=== PATIENT | male | born 1965 | race Caucasian/White ===

== ENCOUNTER 2019-10-22 16:54 | Inpatient (IN) ==
--- NOTE | 2019-10-22 17:23 | ERNOTE ---
Abdominal HPI - Narrative Date of Service: 10/22/19 - General Chief Complaint: Abdominal Pain Time Seen by Provider: 10/22/19 17:12 Source: patient Exam Limitations: no limitations - Immun/Allergies/Home Medications Immunizatons: IMMUNIZATION HX Immunizations Up to Date Yes History of Influenza Vaccine No Hx Pneumococcal Vaccination No Allergies/Adverse Reactions: Allergies No Known Allergies Allergy (Verified 10/22/19 16:21) Home Medications: HOME MEDICATIONS aspirin 81 mg tablet,delayed release 81 mg PO DAILY #30 tab 05/19/19 [Last Taken Unknown] atorvastatin 10 mg tablet 10 mg PO DAILY #30 tab 05/19/19 [Last Taken Unknown] lisinopril 2.5 mg tablet 2.5 mg PO DAILY #30 tab 05/19/19 [Last Taken Unknown] celecoxib 200 mg capsule 200 mg PO BID PRN #60 cap 09/15/19 [Last Taken Unknown] clonazepam 1 mg tablet 1 mg PO HS PRN #45 tab 09/15/19 [Last Taken Unknown] metformin 500 mg tablet 500 mg PO BID #60 tab 09/15/19 [Last Taken Unknown] tramadol 50 mg tablet 50 mg PO DAILY PRN #30 tab 09/15/19 [Last Taken Unknown] zolpidem 12.5 mg tablet,extended release,multiphase 12.5 mg PO HS #30 tab 09/15/19 [Last Taken Unknown] tramadol 50 mg tablet 50 mg PO TID PRN #90 tab 09/24/19 [Last Taken Unknown] venlafaxine 150 mg capsule,extended release 24 hr 150 mg PO DAILY #30 cap 09/24/19 [Last Taken Unknown] venlafaxine 37.5 mg capsule,extended release 24 hr 37.5 mg PO DAILY #21 cap 09/24/19 [Last Taken Unknown] - Pain Score Pain Score #1 Pain Score: 8 Abdominal Pain Onset Location: epigastric Pain Radiation: no radiation - History of Present Illness Narrative: The patient is a 54 year old male who presents for epigastric pain which has been present since yesterday evening. There are associated symptoms of belching and abdominal fullness. The patient reports epigastric pain, 8/10. There are no alleviating factors. There are no aggravating factors. Previous treatments have included: Prilosec without improvement. The past medical history includes: depression, DM and kidney stone. The social history is negative. The patient has had no ill contacts. Patient states he laid down for bed last evening and developed epigastric fullness and pain which has been persistent since onset. Patient reports bowel movement of hard stool just [facility] [employer]. Review of Systems - Review of Systems Constitutional: Present: no symptoms reported. Absent: fever, chills, fatigue EYE: Present: no symptoms reported ENT: Present: no symptoms reported. Absent: ear pain, nasal drainage, sore throat Respiratory: Present: no symptoms reported. Absent: shortness of breath, cough Cardiology: Present: no symptoms reported. Absent: chest pain Gastrointestinal/Abdominal: Present: constipation, abdominal pain, eating less, drinking less. Absent: nausea, vomiting, diarrhea Genitourinary: Present: no symptoms reported. Absent: dysuria, decreased urinary output Musculoskeletal: Present: no symptoms reported. Absent: back pain Skin: Present: no symptoms reported. Absent: rash Neurological: Present: no symptoms reported. Absent: dizziness/light-headedness All Other Systems: All systems neg except as marked Medical History (Last Reviewed 10/22/19 @ 17:21 by MELBA Dhaliwal) Impacted cerumen, bilateral (Acute) Myalgia (Chronic) Encounter for vision screening (Acute) R: L: B: Insomnia disorder (Acute) Fatigue (Chronic) Daytime sleepiness (Chronic) Snoring (Chronic) Associated with daytime fatigue and sleepiness, concerning for CHRISTELLE Screening for depression (Acute) PHQ 9: Watchful waiting. Will address sleep before starting SSRI Encounter to establish care with new doctor (Acute) Pneumonia of left upper lobe due to Mycoplasma pneumoniae (Resolved) Onset Date: 10/16/17 Morbid obesity (Chronic) Onset Date: Unknown Kidney stone (Resolved) Onset Date: Unknown Gout (Chronic) Onset Date: ~1996 Diabetes mellitus, type II (Chronic) Onset Date: 12/18/17 Depression (Chronic) Onset Date: ~1996 Dermatitis (Acute) Onset Date: Unknown Varicosities of leg (Acute) Onset Date: Unknown Superficial phlebitis of right leg (Acute) Onset Date: Unknown Lumbar back sprain (Acute) Onset Date: Unknown Laceration of head (Acute) Onset Date: Unknown Surgical History: Surgical History (Last Reviewed 10/22/19 @ 17:21 by MELBA Dhaliwal) Status post lumbar laminectomy (Resolved) Onset Date: 05/16/10 Dr [id number] Status post epidural steroid injection Onset Date: 04/27/10 01/14/03, 04/27/10-L4-5 Family History: Family History (Last Reviewed 10/22/19 @ 17:21 by MELBA Dhaliwal) Father IDDM (insulin dependent diabetes mellitus) Obesity COPD (chronic obstructive pulmonary disease) Hypertension Brother Alive and well Sister Alive and well 4 sisters Mother , age 72-kidney failure Kidney failure Social History: (Last Reviewed 10/22/19 @ 17:21 by MELBA Dhaliwal) Social History: adopted: No foster care: No [place] [facility] [place]: No Marital status: household members: spouse, children number of children: 3 caregiver/support person: Yes current occupational status: employed current occupation: conservation worker Highest education level completed: some college, no degree Service: No Tobacco: Smoking Status: Never smoker Alcohol: alcohol intake: current Alcohol type: beer alcohol intake frequency: holiday/special occasion Substance Use: substance use type: does not use Dietary Habits: caffeine: Yes Type: tea Exercise: frequency: does not exercise Physical Exam - Physical Exam General Appearance: Present: wd/wn, alert, moderate distress Head Exam: Present: normal inspection Eye Exam: Normal inspection: bilateral Neck: Present: normal inspection Respiratory: Present: no respiratory distress, normal breath sounds, no accessory muscle use, chest nontender, lungs clear Cardiovascular/Chest: Present: regular rate, rhythm, no murmur Gastrointestinal/Abdominal: Present: nondistended, soft, no organomegaly, tenderness - epigastric, abnormal bowel sounds - hypoactive Neurological Exam: Present: alert, oriented, normal mood/affect, no motor/sensory deficits Skin Exam: Present: normal color, warm/dry Progress - Date and Time Seen: Date and Time: 10/22/19 19:34 Due to abnormal xray with symptoms will proceed with CT abd/pelvis for additional evaluation. 10/22/19 20:58 Case discussed with , admit to medicine with surgery consult. Discussed case with , admit due to SBO. 10/22/19 21:41 Difficultly seeing end of NG tube placement, in with patient and NG advanced. Will repeat CXR for placement. - Results and Orders Patient's Lab Results:: I have reviewed the patient's lab results. - Vital Signs Patient's Vital Signs:: I have reviewed the patient's vital signs. Vital Signs: Vital Signs 10/22/19 16:54 Temperature 36.0 C Pulse Rate 98 Respiratory Rate 18 Blood Pressure 143/79 H O2 Sat by Pulse Oximetry 96 - EKG EKG #1 EKG: NSR - rate 99, nonspecific ST T wave changes EKG read: Reviewed by me - X-Ray X-Ray #1 X-Ray: abdomen Interpretation: Reviewed by me X-ray Comments: Abnormal air fluid levels, stair step appearance. Dilated bowel loops. X-Ray #2 X-Ray: chest Interpretation: Reviewed by me X-ray Comments: IMPRESSION: 1. Enteric tube with the tip not well visualized, however appears looped within the distal esophagus. Recommend repositioning. 2. No consolidation. Electronically signed by Poornima Montoya D.O.. - CT/Ultrasound CT/Ultrasound Narrative: IMPRESSION: 1. Findings consistent with a small bowel obstruction. No free intraperitoneal air. 2. Prominent central mesenteric lymph nodes with adjacent inflammatory changes (jude mesentery). This finding is nonspecific. 3. 1.9 cm right adrenal adenoma. 4. 4 mm indeterminate pulmonary nodule in the right middle lobe. Recommend further evaluation with a chest CT on a nonemergent basis to further evaluate. Electronically signed by Poornima Montoya D.O.. - Progress/Reassessment Chief Complaint: Abdominal Pain Departure Clinical Impression: Small bowel obstruction Diabetes mellitus Qualifiers: Diabetes mellitus type: type 2 Diabetes mellitus jail insulin use: without jail use Diabetes mellitus complication status: with other specified complication Qualified Code(s): E11.69 - Type 2 diabetes mellitus with other specified complication - Departure Disposition: Still a patient Condition: Stable
[2019-10-22 17:36] LABS: Hematocrit 51.9 % (42.0-52.0); Hemoglobin 17.9 gm/dL (13.5-18.0); Mean Cell Volume 86.5 fl (78-100); Mean Corpuscular Hemoglobin 29.8 pg (27-31); Mean Corpuscular Hgb Conc 34.5 g/dl (32-36); Mean Platelet Volume 8.8 fl (8-11.3); Platelet Count 303 K/mm3 (150-450); Red Cell Distribution Width 13.1 % (11.5-14.0); White Blood Count 12.8 K/mm3 (4.0-10.5)
[2019-10-22 17:41] LABS: Total Cells Counted 100
[2019-10-22 17:53] LABS: Atypical (Reactive) Lymph 9 % (0-2); Eosinophil 3 % (0-3); Lymphocyte 15 % (20-51); Monocyte 4 % (0-9); Neutrophil 69 % (42-75); Neutrophil # 8.8 K/mm3 (1.3-6.0); Platelet Estimate Normal (NORMAL); RBC Morphology Normal (NORMAL)
[2019-10-22 17:56] LABS: ALT 56 U/L (19-67); AST 29 U/L (0-48); Albumin * 3.9 gm/dl (3.4-5.0); Alkaline Phosphatase * 58 U/L (50-170); Amylase * 27 U/L (25-115); Anion Gap 14.1 mmol/L (6.8-13.8); BUN/Creatinine Ratio 26.3 (9.0-21.6); Bilirubin, Total 0.5 mg/dL (0.0-1.1); Blood Urea Nitrogen 20 mg/dL (6-23); CRP 1.4 mg/dL (0.0-0.9); Ca. Corrected For Albumin 9.2 mg/dL (8.4-10.2); Calcium * 9.4 mg/dL (7.9-10.9); Chloride 100 mmol/L (97-106); Glucose * 150 mg/dL (70-110); Lipase 70 U/L (73-393); Potassium 4.1 mmol/L (3.4-4.6); Sodium 139 mmol/L (132-142); Total Protein 7.9 gm/dL (6.2-8.2)
[2019-10-22 17:57] LABS: Troponin I Less than 0.017 ng/mL (0.00-0.10)
[2019-10-22 18:02] LABS: Urine Bilirubin 1 mg/dl (NEGATIVE); Urine Ketone 5 mg/dL (NEGATIVE); Urine Nitrite Negative (NEGATIVE); Urine Protein 15 mg/dL (NEGATIVE); Urine Specific Gravity >=1.030 SP.GR. (1.005-1.030); Urine Urobilinogen Normal (NORMAL)
[2019-10-22] MEDS ORDERED: DIATRIZOATE MEGLUMINE, SODIUM 30 ML BTL PO ONE (18:07)
[2019-10-22 18:14] LABS: Urine Appearance Slightly Cloudy (CLEAR); Urine Bacteria TRACE; Urine Blood 5 /ul (NEGATIVE); Urine Color Yellow; Urine RBC 0-5 /hpf (0-5)
[2019-10-22] MEDS ORDERED: ONDANSETRON HCL/PF 2 MG/ML VIAL IV ONE (19:46)
[2019-10-22] MEDS ORDERED: MORPHINE SULFATE 2 MG/ML DISP.SYRIN IV ONE (19:46)
[2019-10-22] MEDS ORDERED: NORMAL SALINE 1,000 ML IV ONE (21:38)
[2019-10-22] MEDS ORDERED: ONDANSETRON HCL/PF 2 MG/ML VIAL IV PRN (21:39)
[2019-10-22] MEDS ORDERED: MORPHINE SULFATE 2 MG/ML DISP.SYRIN IV PRN (21:39)
[2019-10-22] MEDS ORDERED: HYDROmorphone HCL 1 MG/ML DISP.SYRIN IV PRN (22:58)
[2019-10-23] MEDS ORDERED: FLU VACC QS2019-20(6MOS UP)/PF 60 MCG/0.5 ML SYRINGE IM ONE ×2 (00:27→09:00)
[2019-10-23] MEDS: PHENOL 180 SPRAY BTL MM PRN ×2 (00:48→03:39)
--- NOTE | 2019-10-23 07:55 | HP ---
Chief Complaint - Chief Complaint Date of Service: 10/23/19 Time of Service: 07:55 Chief Complaint: Abdominal pain History of Present Illness: 54 y/o Male with PMHX of HTN, NIDDM Type II, MDD, KIRBY, Insomnia, and Myalgias presents to the ER c/o epigsatric pain for 1 day progressively getting worse. is at bedside and states Symptoms began on Saturday and they dismissed it as viral infection, progressively over the week epigastric pain progressively became worse. Patient reports he though it was worsening of reflux sxs due to abdominal fullness and belching, but no relief from PPIs. Associated with nausea, but no emesis. On admission pain was described as 8/10, localized, no aggravating or alleviating factors known to the patient. Previously pain was intermittent, pain was constant by arrival to the ER. In the ER VSS, KUB completed and demonstrated multiple dilated loops of small bowel measuring up to 4.2 cm which is suspicious for small bowel obstruction versus ileus. Followed by a CT of the abdomen showing small bowel obstruction, prominent central mesenteric lymph nodes with adjacent inflammatory changes (jude mesentery), 1.9 cm right adrenal adenoma and 4. 4 mm indeterminate pulmonary nodule in the right middle lobe, with recommendations of further evaluation with a chest CT on a nonemergent basis to further evaluate. Labs were largely unremarkable with mild leukocytosis with left shift, elevated CRP & ESR and Hyperglycemia. Patient made NPO and NG tube placed with confirmation of placement with a f/u CXR. Received dilaudid for pain management and Bolus of NS. General Surgery Consulted. On arrival to the floor patient is stable. Not in pain. NG tube in place, no BM yet. Discussed management with patient and at bedside. Voiced understanding and agreeable with plan. Medical History (Last Reviewed 10/23/19 @ 00:11 by Benita Durant RN) Impacted cerumen, bilateral (Acute) Myalgia (Chronic) Encounter for vision screening (Acute) R: 20/25 L:20 B:20/25 Insomnia disorder (Chronic) Fatigue (Chronic) Daytime sleepiness (Chronic) Snoring (Chronic) Associated with daytime fatigue and sleepiness, concerning for CHRISTELLE Screening for depression (Acute) PHQ 9: Watchful waiting. Will address sleep before starting SSRI Encounter to establish care with new doctor (Acute) Pneumonia of left upper lobe due to Mycoplasma pneumoniae (Resolved) Onset Date: 10/16/17 Morbid obesity (Chronic) Onset Date: Unknown Kidney stone (Resolved) Onset Date: Unknown Gout (Chronic) Onset Date: ~1996 Diabetes mellitus, type II (Chronic) Onset Date: 12/18/17 Depression (Chronic) Onset Date: ~1996 Dermatitis (Acute) Onset Date: Unknown Varicosities of leg (Acute) Onset Date: Unknown Superficial phlebitis of right leg (Acute) Onset Date: Unknown Lumbar back sprain (Acute) Onset Date: Unknown Laceration of head (Acute) Onset Date: Unknown Surgical History: Surgical History (Last Reviewed 10/23/19 @ 00:11 by Benita Durant RN) Status post lumbar laminectomy (Resolved) Onset Date: 05/16/10 Dr [id number] Status post epidural steroid injection Onset Date: 04/27/10 01/14/03, 04/27/10-L4-5 Family History: Family History (Last Reviewed 10/23/19 @ 00:11 by Benita Durant RN) Father Hypertension COPD (chronic obstructive pulmonary disease) Obesity IDDM (insulin dependent diabetes mellitus) Brother Alive and well Sister Alive and well 4 sisters Mother , age 72-kidney failure Kidney failure Social History: (Last Reviewed 10/23/19 @ 00:11 by Benita Durant RN) Social History: adopted: No foster care: No fpc: No Marital status: household members: spouse, children number of children: 3 caregiver/support person: Yes current occupational status: employed current occupation: utility maintenance worker Highest education level completed: some college, no degree Service: No Tobacco: Smoking Status: Never smoker Alcohol: alcohol intake: current Alcohol type: beer alcohol intake frequency: holiday/special occasion Substance Use: substance use type: does not use Dietary Habits: caffeine: Yes Type: tea Exercise: frequency: does not exercise Review Of Systems (GEN) - Review of Systems Generalized/Overall Review: Absent: Chills, Fatigue EENTM: Present: Nose Pain, Throat Pain Respiratory: Absent: Cough, Shortness of Breath Cardiac: Absent: Chest Pain Abdominal: Present: Nausea, Abdominal Pain, Constipation. Absent: Vomiting Genitourinary: Absent: Itching, Urgency, Frequency Musculoskeletal: Absent: Joint Pain, Back Pain Neurological: Absent: Weakness Skin: Absent: Dryness Immunizations: IMMUNIZATION HX Immunizations Up to Date Yes History of Influenza Vaccine No Hx Pneumococcal Vaccination No Allergies/Adverse Reactions: Allergies Allergy/AdvReac Type Severity Reaction Status Date / Time No Known Allergies Allergy Verified 10/23/19 00:11 Home Medications: HOME MEDICATIONS lisinopril 2.5 mg tablet 2.5 mg PO DAILY #30 tab 05/19/19 [Last Taken Unknown] celecoxib 200 mg capsule 200 mg PO BID PRN #60 cap 09/15/19 [Last Taken Unknown] clonazepam 1 mg tablet 1 mg PO HS PRN #45 tab 09/15/19 [Last Taken Unknown] metformin 500 mg tablet 500 mg PO BID #60 tab 09/15/19 [Last Taken Unknown] zolpidem 12.5 mg tablet,extended release,multiphase 12.5 mg PO HS #30 tab 09/15/19 [Last Taken Unknown] venlafaxine 150 mg capsule,extended release 24 hr 150 mg PO DAILY #30 cap 09/24/19 [Last Taken Unknown] venlafaxine 37.5 mg capsule,extended release 24 hr 37.5 mg PO DAILY #21 cap 09/24/19 [Last Taken Unknown] traMADol HCL [Tramadol HCl] 50 mg PO PRN PRN 10/23/19 [Last Taken Unknown] Exam - Exam Vital Signs: Vital Signs - Last Taken Temp 36.4 C 10/23/19 06:34 Pulse 86 10/23/19 06:34 Resp 12 10/23/19 06:34 BP 130/84 10/23/19 06:34 Pulse Ox 96 10/23/19 06:34 Constitutional: Present: Alert, Oriented x3, Cooperative, Well developed, No distress ENT Exam: Present: hearing grossly normal Eye Exam: bilateral eye: normal inspection, EOMI Neck: Present: non-tender, full range of motion Respiratory: Present: lungs clear, normal breath sounds, no respiratory distress, no accessory muscle use, No rales, No wheezing Cardiovascular/Chest: Present: normal peripheral pulses, regular rate, rhythm, no chest tenderness, no edema, no gallop, no JVD, no murmur Abdomen: Present: Normal bowel sounds, nondistended, firm, distended Extremity: Present: normal range of motion, normal inspection, no pedal edema, normal capillary refill Skin Exam: Present: normal color, warm/dry Neurologic: Present: no motor/sensory deficits, alert, oriented x 3 Appearance: Present: appropriate appearance Eye contact: Present: cooperative, good eye contact Thoughts: Present: normal thought pattern Diagnostic Studies: Abnormal Lab Results 10/22/19 10/22/19 10/22/19 Range/Units 17:30 17:30 17:54 WBC 12.8 H (4.0-10.5) K/mm3 Lymphocytes % (Manual) 15 L (20-51) % Neutrophils # (Manual) 8.8 H (1.3-6.0) K/mm3 Atypic/Reactive Lymphs 9 H (0-2) % Anion Gap 14.1 H (6.8-13.8) mmol/L BUN/Creatinine Ratio 26.3 H (9.0-21.6) Random Glucose 150 H (70-110) mg/dL C-Reactive Prot, Quant 1.4 H (0.0-0.9) mg/dL Lipase 70 L (73-393) U/L Urine Protein 15 H (NEGATIVE) mg/dL Urine Blood 5 H (NEGATIVE) /ul Urine Bilirubin 1 H (NEGATIVE) mg/dl Urine Ictotest Positive H (NEGATIVE) Ur Leukocyte Esterase 75 H (NEGATIVE) /ul Urine WBC 10-25 H (0-5) /hpf Microbiology 10/22/19 18:00 Urine Culture - Preliminary Urine,Voided No Growth Laboratory Results WBC 12.8 K/mm3 (4.0-10.5) H 10/22/19 17:30 RBC 6.00 M/mm3 (4.7-6.0) 10/22/19 17:30 Hgb 17.9 gm/dL (13.5-18.0) 10/22/19 17:30 Hct 51.9 % (42.0-52.0) 10/22/19 17:30 MCV 86.5 fl (78-100) 10/22/19 17:30 MCH 29.8 pg (27-31) 10/22/19 17:30 MCHC 34.5 g/dl (32-36) 10/22/19 17:30 RDW 13.1 % (11.5-14.0) 10/22/19 17:30 Plt Count 303 K/mm3 (150-450) 10/22/19 17:30 MPV 8.8 fl (8-11.3) 10/22/19 17:30 Neutrophils % (Manual) 69 % (42-75) 10/22/19 17:30 Lymphocytes % (Manual) 15 % (20-51) L 10/22/19 17:30 Monocytes % (Manual) 4 % (0-9) 10/22/19 17:30 Eosinophils % (Manual) 3 % (0-3) 10/22/19 17:30 Neutrophils # (Manual) 8.8 K/mm3 (1.3-6.0) H 10/22/19 17:30 Lymphocytes # (Manual) 1.9 k/mm3 (1.5-3.5) 10/22/19 17:30 Monocytes # (Manual) 0.5 k/mm3 (0.0-1.0) 10/22/19 17:30 Eosinophils # (Manual) 0.4 k/mm3 (0.0-0.7) 10/22/19 17:30 Atypic/Reactive Lymphs 9 % (0-2) H 10/22/19 17:30 Platelet Estimate Normal (NORMAL) 10/22/19 17:30 RBC Morphology Normal (NORMAL) 10/22/19 17:30 Sodium 139 mmol/L (132-142) 10/22/19 17:30 Plasma Sodium 140 mmol/L (130-142) 10/22/19 17:30 Potassium 4.1 mmol/L (3.4-4.6) 10/22/19 17:30 Chloride 100 mmol/L (97-106) 10/22/19 17:30 Carbon Dioxide 29.0 mmol/L (24-32.6) 10/22/19 17:30 Anion Gap 14.1 mmol/L (6.8-13.8) H 10/22/19 17:30 BUN 20 mg/dL (6-23) 10/22/19 17:30 Creatinine 0.76 mg/dL (0.4-1.4) 10/22/19 17:30 Est GFR (Non-Af Amer) 114 mL/min (60-130) 10/22/19 17:30 BUN/Creatinine Ratio 26.3 (9.0-21.6) H 10/22/19 17:30 Random Glucose 150 mg/dL (70-110) H 10/22/19 17:30 Calcium 9.4 mg/dL (7.9-10.9) 10/22/19 17:30 Calcium Adj for Albumin 9.2 mg/dL (8.4-10.2) 10/22/19 17:30 Total Bilirubin 0.5 mg/dL (0.0-1.1) 10/22/19 17:30 AST 29 U/L (0-48) 10/22/19 17:30 ALT 56 U/L (19-67) 10/22/19 17:30 Alkaline Phosphatase 58 U/L (50-170) 10/22/19 17:30 Troponin I Less than 0.017 ng/mL (0.00-0.10) 10/22/19 17:30 C-Reactive Prot, Quant 1.4 mg/dL (0.0-0.9) H 10/22/19 17:30 Total Protein 7.9 gm/dL (6.2-8.2) 10/22/19 17:30 Albumin 3.9 gm/dl (3.4-5.0) 10/22/19 17:30 Amylase 27 U/L (25-115) 10/22/19 17:30 Lipase 70 U/L (73-393) L 10/22/19 17:30 Urine Color Yellow 10/22/19 17:54 Urine Appearance Slightly cloudy (CLEAR) 10/22/19 17:54 Urine pH 6.0 pH (5.0-7.0) 10/22/19 17:54 Ur Specific [place] >=1.030 SP.GR. (1.005-1.030) 10/22/19 17:54 Urine Protein 15 mg/dL (NEGATIVE) H 10/22/19 17:54 Urine Glucose (UA) Negative mg/dL (NEGATIVE) 10/22/19 17:54 Urine Ketones 5 mg/dL (NEGATIVE) 10/22/19 17:54 Urine Blood 5 /ul (NEGATIVE) H 10/22/19 17:54 Urine Nitrate Negative (NEGATIVE) 10/22/19 17:54 Urine Bilirubin 1 mg/dl (NEGATIVE) H 10/22/19 17:54 Urine Ictotest Positive (NEGATIVE) H 10/22/19 17:54 Prot Sulfosalicylic Acd 1+ mg/dL (0) 10/22/19 17:54 Urine Urobilinogen Normal EU/dl (NORMAL) 10/22/19 17:54 Ur Leukocyte Esterase 75 /ul (NEGATIVE) H 10/22/19 17:54 Urine RBC 0-5 /hpf (0-5) 10/22/19 17:54 Urine WBC 10-25 /hpf (0-5) H 10/22/19 17:54 Ur Epithelial Cells None seen /hpf (0-5) 10/22/19 17:54 Urine Bacteria Trace (NONE) 10/22/19 17:54 Urine Culture Comments Culture to follow 10/22/19 17:54 Assessment/Plan - Narrative Narrative: - Assessment/Plan (1) Small bowel obstruction - NG tube in place cont. suction - NPO - NS mIVFs at 125 ml/hr - General Surgery Consulted, awaiting recommendations - Pain management with Dilaudid PRN. (2) Hyperglycemia in the setting of Diabetes mellitus - Currently NPO - Will resume diet according to recommendations by General Surgery - Will start LDSS insulin with diet (3) Major depression - Hold Meds (4) Generalized anxiety disorder - Hold Mes (5) Insomnia disorder - Hold Meds FEN: NPO till further evaluation. NS mIVFs at 125mL/hr DVT PPX: Lovenox 40 mg SC HS CODE STATUS: FULL CODE DISPOSITION: - Awaiting Dr. Bocanegra, (General Surgery) Recommendations. - Assessment/Plan (1) Small bowel obstruction Problem: Acute (2) Diabetes mellitus Problem: Acute Qualifiers: Diabetes mellitus type: type 2 Diabetes mellitus custodial insulin use: without custodial use Diabetes mellitus complication status: without complication Qualified Code(s): E11.9 - Type 2 diabetes mellitus without complications (3) Major depression, chronic Problem: Chronic (4) Generalized anxiety disorder Problem: Chronic (5) Insomnia disorder Problem: Chronic Qualifiers: Insomnia type: psychophysiologic Qualified Code(s): F51.04 - Psychophysiologic insomnia
[2019-10-23 08:13] LABS: Hematocrit 47.5 % (42.0-52.0); Hemoglobin 16.4 gm/dL (13.5-18.0); Mean Cell Volume 87.6 fl (78-100); Mean Corpuscular Hemoglobin 30.3 pg (27-31); Mean Corpuscular Hgb Conc 34.5 g/dl (32-36); Mean Platelet Volume 8.7 fl (8-11.3); Neutrophil # 9.2 K/mm3 (1.3-6.0); Neutrophil % 68.3 % (42-75.0); Platelet Count 269 K/mm3 (150-450); Red Blood Count 5.42 M/mm3 (4.7-6.0); Red Cell Distribution Width 13.3 % (11.5-14.0); White Blood Count 13.4 K/mm3 (4.0-10.5)
[2019-10-23 08:32] LABS: Albumin * 3.4 gm/dl (3.4-5.0); Anion Gap 12.8 mmol/L (6.8-13.8); Bilirubin, Total 0.7 mg/dL (0.0-1.1); Ca. Corrected For Albumin 8.8 mg/dL (8.4-10.2); Calcium * 8.6 mg/dL (7.9-10.9); Potassium 3.8 mmol/L (3.4-4.6); Total Protein 7.3 gm/dL (6.2-8.2)
[2019-10-23] MEDS: NORMAL SALINE 1,000 ML IV SCH ×2 (09:32→17:38)
[2019-10-23] MEDS: ENOXAPARIN SODIUM 40 MG/0.4 ML SYRG SC SCH (09:33)
--- NOTE | 2019-10-23 10:29 | CONS ---
[facility] - General Date of Service: 10/23/19 Source: patient Exam Limitations: no limitations - History of Present Illness Initial Comments: Martin is a pleasant 54-year-old gentleman who developed abdominal pain in the epigastric region. He came in through the emergency room. A CT scan was done which demonstrated a small bowel obstruction. He was admitted to the hospital. An NG tube was placed. He is feeling much better now. He has passed flatus 3 or 4 times. He denies any abdominal pain. He denies any nausea or vomiting. Timing/Duration: 24 hours Severity: moderate Modifying Factors - (Worsens): Reports: eating Modifying Factors - (Improves): Reports: medication, other - NG tube Associated Symptoms: denies symptoms Allergies/Adverse Reactions: Allergies No Known Allergies Allergy (Verified 10/23/19 00:11) Home Medications: Home Medications Medication Instructions Recorded Last Taken lisinopril 2.5 mg tablet 2.5 mg PO DAILY #30 tab 05/19/19 Unknown celecoxib 200 mg capsule 200 mg PO BID PRN #60 cap 09/15/19 Unknown clonazepam 1 mg tablet 1 mg PO HS PRN #45 tab 09/15/19 Unknown metformin 500 mg tablet 500 mg PO BID #60 tab 09/15/19 Unknown zolpidem 12.5 mg tablet,extended 12.5 mg PO HS #30 tab 09/15/19 Unknown release,multiphase venlafaxine 150 mg 150 mg PO DAILY #30 cap 09/24/19 Unknown capsule,extended release 24 hr venlafaxine 37.5 mg 37.5 mg PO DAILY #21 cap 09/24/19 Unknown capsule,extended release 24 hr traMADol HCL [Tramadol HCl] 50 mg PO PRN PRN 10/23/19 Unknown Procedures ANESTH INJECT-SPIN CANAL (04/27/10) INJECT STEROID (04/27/10) Injection of anesthetic into spinal canal for analgesia (01/14/03) Injection of other agent into spinal canal (01/14/03) Injection of steroid (01/14/03) SPINAL CANAL INJECT NEC (04/27/10) Medications - Medications Current Medications: Current Medications Enoxaparin Sodium (Lovenox) 40 mg SC Q24H SUZANNA Stop: 11/22/19 08:01 Last Admin: 10/23/19 09:33 Dose: 40 mg Documented by: Hydromorphone HCl (Dilaudid) 0.5 mg IV Q4H PRN PRN Reason: Pain Stop: 11/21/19 22:59 Last Admin: 10/23/19 00:48 Dose: 0.5 mg Documented by: Sodium Chloride (Sodium Chloride 0.9%) 1,000 mls @ 125 mls/hr IV .Q8H SUZANNA Stop: 11/22/19 08:31 Last Admin: 10/23/19 09:32 Dose: 125 mls/hr Documented by: Phenol/Menthol (Chloraseptic) 1 spray MM PRN PRN PRN Reason: Sore Throat Stop: 11/22/19 00:36 Last Admin: 10/23/19 03:39 Dose: 1 spray Documented by: Review of Systems - Review of Systems Generalized/Overall Review: Present: Malaise EENTM: Present: No Symptoms Reported Respiratory: Present: No Symptoms Reported Cardiac: Present: No Symptoms Reported Abdominal: Present: Nausea, Abdominal Pain Genitourinary: Present: No Symptoms Reported Musculoskeletal: Present: No Symptoms Reported Neurological: Present: No Symptoms Reported Skin: Present: No Symptoms Reported Endocrine: Present: No Symptoms Reported Physical Examination - Exam Vital Signs: Vital Signs - Last Taken Temp 36.4 C 10/23/19 06:34 Pulse 86 10/23/19 06:34 Resp 12 10/23/19 06:34 BP 130/84 10/23/19 06:34 Pulse Ox 96 10/23/19 06:34 O2 Oxygen Delivery Method Room Air Constitutional: Present: Alert, Oriented x3, Cooperative ENT Exam: Present: hearing grossly normal Eye Exam: bilateral eye: normal inspection Neck: Present: supple Respiratory: Present: lungs clear, normal breath sounds, no respiratory distress Cardiovascular/Chest: Present: regular rate, rhythm Abdomen: Present: soft, no rebound tenderness. 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 Appearance: Present: appropriate appearance Eye contact: Present: cooperative, good eye contact Thoughts: Present: normal thought pattern - Results and Findings: Lab/Microbiology results last 24 hrs: Abnormal/Pending Laboratory Last 24 HRS 10/23/19 10/23/19 10/22/19 08:06 08:06 17:54 WBC 13.4 H Immature Gran # (Auto) 0.05 H Lymphocytes % (Manual) Neutrophils # 9.2 H Neutrophils # (Manual) Atypic/Reactive Lymphs Anion Gap BUN/Creatinine Ratio 30.0 H Random Glucose 148 H C-Reactive Prot, Quant Lipase Urine Protein 15 H Urine Blood 5 H Urine Bilirubin 1 H Urine Ictotest Positive H Ur Leukocyte Esterase 75 H Urine WBC 10-25 H 10/22/19 10/22/19 17:30 17:30 WBC 12.8 H Immature Gran # (Auto) Lymphocytes % (Manual) 15 L Neutrophils # Neutrophils # (Manual) 8.8 H Atypic/Reactive Lymphs 9 H Anion Gap 14.1 H BUN/Creatinine Ratio 26.3 H Random Glucose 150 H C-Reactive Prot, Quant 1.4 H Lipase 70 L Urine Protein Urine Blood Urine Bilirubin Urine Ictotest Ur Leukocyte Esterase Urine WBC Culture 10/22/19 18:00 Urine Culture - Preliminary Urine,Voided No Growth - Assessments/Findings (1) Small bowel obstruction Problem: Acute Plan - Plan Plan: We will plan to clamp the NG tube as he is having flatus. We will start clear liquids. Continue with conservative management. Thank you for the consultation.
[2019-10-23] MEDS: INSULIN LISPRO 100 UNITS/ML VIAL SC SCH ×2 (17:50→20:37)
[2019-10-24] MEDS: NORMAL SALINE 1,000 ML IV SCH (02:07)
[2019-10-24 05:00] LABS: Hematocrit 41.2 % (42.0-52.0); Hemoglobin 14.2 gm/dL (13.5-18.0); Mean Corpuscular Hemoglobin 30.7 pg (27-31); Mean Corpuscular Hgb Conc 34.5 g/dl (32-36); Mean Platelet Volume 8.6 fl (8-11.3); Neutrophil # 7.1 K/mm3 (1.3-6.0); Neutrophil % 64.4 % (42-75.0); Platelet Count 201 K/mm3 (150-450); Red Blood Count 4.63 M/mm3 (4.7-6.0); Red Cell Distribution Width 13.3 % (11.5-14.0)
[2019-10-24 05:23] LABS: Albumin * 2.9 gm/dl (3.4-5.0); Anion Gap 9.6 mmol/L (6.8-13.8); BUN/Creatinine Ratio 19.7 (9.0-21.6); Bilirubin, Total 0.6 mg/dL (0.0-1.1); Ca. Corrected For Albumin 8.3 mg/dL (8.4-10.2); Calcium * 7.7 mg/dL (7.9-10.9); Carbon Dioxide 28.1 mmol/L (24-32.6); Potassium 3.7 mmol/L (3.4-4.6); Total Protein 6.3 gm/dL (6.2-8.2)
[2019-10-24] MEDS: INSULIN LISPRO 100 UNITS/ML VIAL SC SCH ×4 (06:23→20:03)
[2019-10-24] MEDS ORDERED: traMADol HCL 50 MG TABLET PO PRN ×2 (08:23→08:36)
[2019-10-24] MEDS ORDERED: clonazePAM 1 MG TABLET PO PRN (08:23)
[2019-10-24] MEDS ORDERED: CELECOXIB 100 MG CAPSULE PO PRN (08:23)
[2019-10-24] MEDS: ENOXAPARIN SODIUM 40 MG/0.4 ML SYRG SC SCH (08:34)
--- NOTE | 2019-10-24 08:35 | PN ---
Subjective - Date and Time Seen Date: 10/24/19 Time: 08:34 Subjective Narrative: No acute events overnight. NG tube removed successfully, and patient is tolerating clear liquid diet. Passing a lot of flatus but no BM yet. No nausea or emesis. No abdominal pain. Discussed labs have improved from admission, leukocytosis is trending down but not yet WNL. Renal function concerning for dehydration on admission, with mIVFs, labs show he is now well hydrated. Advised will discontinue mIVFs, and advance diet as tolerated from clear liquids, and switch IV pain and anti-nausea medication to PO. Anticipate discharge within 24 hours. Objective - Review of Systems Generalized/Overall Review: Denies: Fatigue Respiratory: Denies: Shortness of Breath Cardiac: Denies: Edema Abdominal: Denies: Nausea, Vomiting, Abdominal Pain Musculoskeletal Complaints: Denies: Joint Pain Neurological: Denies: Weakness - Vitals Vitals: Last Vital Signs Temp 36.5 C 10/24/19 07:07 Pulse 83 10/24/19 07:07 Resp 16 10/24/19 07:07 BP 120/77 10/24/19 07:07 Pulse Ox 96 10/24/19 07:07 - Abnormal Lab Findings Abnormal Lab Findings: Abnormal Lab Results 10/23/19 10/24/19 10/24/19 Range/Units 08:06 04:55 04:55 WBC 11.0 H (4.0-10.5) K/mm3 RBC 4.63 L (4.7-6.0) M/mm3 Hct 41.2 L (42.0-52.0) % Immature Gran % (Auto) 0.60 H (0.001-0.429) % Immature Gran # (Auto) 0.07 H (0.000-0.0310) K/mm3 Eosinophils % 3.5 H (0.0-3.0) % Neutrophils # 7.1 H (1.3-6.0) K/mm3 Est GFR (Non-Af Amer) 134 H (60-130) mL/min BUN/Creatinine Ratio 30.0 H (9.0-21.6) Random Glucose 148 H 128 H (70-110) mg/dL Calcium 7.7 L (7.9-10.9) mg/dL Calcium Adj for Albumin 8.3 L (8.4-10.2) mg/dL Alkaline Phosphatase 46 L (50-170) U/L Albumin 2.9 L (3.4-5.0) gm/dl - Exam Constitutional: Present: Alert, Oriented x3, Cooperative, Well developed ENT Exam: Present: hearing grossly normal Neck: Present: non-tender, full range of motion, supple Respiratory: Present: lungs clear, normal breath sounds, no respiratory distress Cardiovascular/Chest: Present: normal peripheral pulses, regular rate, rhythm, no chest tenderness, no edema Abdomen: Present: Normal bowel sounds, other - less distended in comparison to yesterday physical exam. Extremity: Present: normal range of motion, non-tender Skin Exam: Present: normal color Neurologic: Present: alert, oriented x 3 Appearance: Present: appropriate appearance Eye contact: Present: cooperative, good eye contact Thoughts: Present: normal thought pattern Assessment/Plan Plan Narrative: Narrative: - Assessment/Plan (1) Small bowel obstruction - NG tube clamped and started on clear liquid diet and tolerated it well. NG Tube removed yesterday evening - On clear liquid diet, will Advance diet as tolerated - Evaluated by Dr. Bocanegra (General Surgery) and discussed case, recommendation is is patient is passing flatus advance diet as tolerated, she will come in and evaluate him as well. - Discontinued Dilaudid and Morphine IV, started Tramadol 50 mg PO Q6H PRN for pain management - Zofran IV discontinued. Switched to Zofran 8mg PO Q6H PRN. (2)Leukocytosis trending down, most likely reactive not infectious - Trending down (3) Renal Function concerning for dehydration on admission - Started on mIVFS, labs show he is now well hydrated. - Discontinued mIVFs, since patient is tolerating PO (4) Mild Hyperglycemia in the setting of Non Insulin Dependent Diabetes Mellitus Type II - Clear Liquids and advance diet as tolerated - Continue with Insulin low dose sliding scale TID with meals (5) Major depression - Since patient is able to tolerate liquids, resumed Venlafaxine 150 mg PO QAM, (6) Generalized anxiety disorder - Resumed Clonazepam 1 mg PO HS, 1/2 tablet as needed during the day (7) Insomnia disorder - Resumed Zolpidem CR 12.5 mg PO HS FEN: Clear Liquid Diet and Advance Diet as Tolerated DVT PPX: Lovenox 40 mg SC HS CODE STATUS: FULL CODE DISPOSITION: - Awaiting Dr. Bocanegra, (General Surgery) Recommendations. - Advance diet as tolerated - If patient is able to tolerate regular diet and PO medications, with continued flatus and have a bowel movement, I anticipate discharge within 24 hours. - Problems/Diagnosis (1) Small bowel obstruction Problem: Acute (2) Leukocytosis Problem: Acute Qualifiers: Leukocytosis type: leukemoid reaction Qualified Code(s): D72.823 - Leukemoid reaction (3) Admitted with dehydration Problem: Resolved (4) Diabetes mellitus Problem: Chronic Qualifiers: Diabetes mellitus type: type 2 Diabetes mellitus residential insulin use: without residential use Diabetes mellitus complication status: without complication Qualified Code(s): E11.9 - Type 2 diabetes mellitus without complications (5) Major depression, chronic Problem: Chronic (6) Generalized anxiety disorder Problem: Chronic (7) Insomnia disorder Problem: Chronic Qualifiers: Insomnia type: psychophysiologic Qualified Code(s): F51.04 - Psychophysiologic insomnia
[2019-10-24] MEDS ORDERED: ONDANSETRON HCL 8 MG TABLET PO PRN (08:36)
[2019-10-24] MEDS: VENLAFAXINE HCL 150 MG CAP.SR.24H PO SCH (08:47)
[2019-10-24] MEDS: LISINOPRIL 2.5 MG TABLET PO SCH (08:48)
--- NOTE | 2019-10-24 09:49 | PN ---
Dictated Progress Note - Date and Time Seen: Date: 10/24/19 Time: 09:48 - Progress Note Narrative: doing well, feeling better, no n/v. pos flatus Vital Signs - Last Taken Temp 36.5 C 10/24/19 07:07 Pulse 83 10/24/19 08:48 Resp 16 10/24/19 07:07 BP 120/77 10/24/19 08:48 Pulse Ox 96 10/24/19 07:07 Abnormal/Pending Laboratory Last 24 HRS 10/24/19 10/24/19 04:55 04:55 WBC 11.0 H RBC 4.63 L Hct 41.2 L Immature Gran % (Auto) 0.60 H Immature Gran # (Auto) 0.07 H Eosinophils % 3.5 H Neutrophils # 7.1 H Est GFR (Non-Af Amer) 134 H Random Glucose 128 H Calcium 7.7 L Calcium Adj for Albumin 8.3 L Alkaline Phosphatase 46 L Albumin 2.9 L Culture 10/22/19 18:00 Urine Culture - Preliminary Urine,Voided Ruling Out Pathogen NAD abd soft, non tender, non distended skin warm and dry Imp: resolving SBO Plan ADAT poss dc tomorrow if continues to improve
[2019-10-24] MEDS ORDERED: ZOLPIDEM TARTRATE 10 MG TABLET PO SCH (21:00)
[2019-10-25 05:25] LABS: Hematocrit 42.5 % (42.0-52.0); Hemoglobin 14.7 gm/dL (13.5-18.0); Mean Cell Volume 87.1 fl (78-100); Mean Corpuscular Hemoglobin 30.1 pg (27-31); Mean Corpuscular Hgb Conc 34.6 g/dl (32-36); Mean Platelet Volume 8.5 fl (8-11.3); Neutrophil % 64.9 % (42-75.0); Platelet Count 233 K/mm3 (150-450); Red Blood Count 4.88 M/mm3 (4.7-6.0); Red Cell Distribution Width 12.8 % (11.5-14.0); White Blood Count 10.8 K/mm3 (4.0-10.5)
[2019-10-25 05:39] LABS: Albumin * 3.1 gm/dl (3.4-5.0); Anion Gap 10.2 mmol/L (6.8-13.8); BUN/Creatinine Ratio 15.6 (9.0-21.6); Bilirubin, Total 0.6 mg/dL (0.0-1.1); Ca. Corrected For Albumin 8.7 mg/dL (8.4-10.2); Calcium * 8.3 mg/dL (7.9-10.9); Carbon Dioxide 27.9 mmol/L (24-32.6); Potassium 4.1 mmol/L (3.4-4.6); Total Protein 6.9 gm/dL (6.2-8.2)
[2019-10-25] MEDS: INSULIN LISPRO 100 UNITS/ML VIAL SC SCH (06:18)
[2019-10-25] MEDS: VENLAFAXINE HCL 150 MG CAP.SR.24H PO SCH (08:51)
[2019-10-25] MEDS: ENOXAPARIN SODIUM 40 MG/0.4 ML SYRG SC SCH (08:51)
[2019-10-25] MEDS: LISINOPRIL 2.5 MG TABLET PO SCH (08:51)
--- NOTE | 2019-10-25 09:14 | PN ---
Dictated Progress Note - Date and Time Seen: Date: 10/25/19 Time: 09:13 - Progress Note Narrative: feeling better today, had multiple BM. Vital Signs - Last Taken Temp 36.7 C 10/25/19 07:01 Pulse 71 10/25/19 08:51 Resp 20 10/25/19 07:01 BP 128/73 10/25/19 08:51 Pulse Ox 95 10/25/19 07:01 Abnormal/Pending Laboratory Last 24 HRS 10/25/19 10/25/19 05:20 05:20 WBC 10.8 H Immature Gran % (Auto) 0.70 H Immature Gran # (Auto) 0.08 H Eosinophils % 4.0 H Neutrophils # 7.0 H Est GFR (Non-Af Amer) 139 H Random Glucose 123 H Albumin 3.1 L Culture 10/22/19 18:00 Urine Culture - Preliminary Urine,Voided Ruling Out Pathogen NAD non labored respirations abd soft, non tender Imp: resolved SBO Plan: md home
--- NOTE | 2019-10-25 09:50 | DS ---
(1) Small bowel obstruction Problem: Acute (2) Leukocytosis Problem: Acute Qualifiers: Leukocytosis type: leukemoid reaction Qualified Code(s): D72.823 - Leukemoid reaction (3) Admitted with dehydration Problem: Resolved (4) Diabetes mellitus Problem: Chronic Qualifiers: Diabetes mellitus type: type 2 Diabetes mellitus manager terminal insulin use: without manager terminal use Diabetes mellitus complication status: without complication Qualified Code(s): E11.9 - Type 2 diabetes mellitus without complications (5) Major depression, chronic Problem: Chronic (6) Generalized anxiety disorder Problem: Chronic (7) Insomnia disorder Problem: Chronic Qualifiers: Insomnia type: psychophysiologic Qualified Code(s): F51.04 - Psychophysiologic insomnia Date of Discharge:: 10/25/19 Hospital Course: 54 y/o M admitted for SBO on 10/23/2019, with no BM or flatus for a couple of days. KUB demonstrated concern for ileus or obstruction followed by a CT of the abdomen which confirmed SBO. Labs were largely largely significant for leukocytosis most likely leukomoid reaction and dehydration. Patient made NPO and NG tube placed for approximately 12 hours with removal of large amounts of fluid, Started on mIVFs, pain managed with IV dilaudid and morphine. General Surgery () consulted. Evaluated by Dr. Bocanegra, on 10/23/19, recommended NG tube be clamped at approximately 10 am and started on clear liquid diet. Patient started passing flatus. Overnight NG tube removed. On 10/24/19, diet was advanced as tolerated, resumed PO medications, discontinued mIVFs and switched IV pain medication to Tramadol PO Q6H PRN. PE improved significantly from admission, abdomen is now soft and + BS. Overnight of 10/24/19, patient had a BM described as loose stool. Labs improved during hospitalization. Patient discharged on 10/25/19 and will follow up with PCP, Dr. Urbina, within 1 week of discharge. Patient advised to call General surgery and schedule an EGD and Colonoscopy. Procedures Performed: none Care Plan Goals: Schedule EGD and Colonoscopy Plan of Treatment: Eat small portions, include fiber and probiotics in diet EGD and Colonoscopy to be completed as soon as possible. Health Concerns: Myositis- CRP elevated will complete further workup outpatient and consider referral to Neurology versus Power Machine Operator for higher level of care Assessment: S/P SBO Results and Findings: Pending Mircobiology Results 10/22/19 18:00 Urine,Voided Urine Culture - Preliminary Ruling Out Pathogen Lab Pending Results 10/22/19 17:30: WBC 12.8 H, RBC 6.00, Hgb 17.9, Hct 51.9, MCV 86.5, MCH 29.8, MCHC 34.5, RDW 13.1, Plt Count 303, MPV 8.8, Neutrophils % (Manual) 69, Lymphocytes % (Manual) 15 L, Monocytes % (Manual) 4, Eosinophils % (Manual) 3, Neutrophils # (Manual) 8.8 H, Lymphocytes # (Manual) 1.9, Monocytes # (Manual) 0.5, Eosinophils # (Manual) 0.4, Atypic/Reactive Lymphs 9 H, Platelet Estimate Normal, RBC Morphology Normal 10/22/19 17:30: Sodium 139, Plasma Sodium 140, Potassium 4.1, Chloride 100, Carbon Dioxide 29.0, Anion Gap 14.1 H, BUN 20, Creatinine 0.76, Est GFR (Non-Af Amer) 114, BUN/Creatinine Ratio 26.3 H, Random Glucose 150 H, Calcium 9.4, Calcium Adj for Albumin 9.2, Total Bilirubin 0.5, AST 29, ALT 56, Alkaline Phosphatase 58, Troponin I Less than 0.017, C-Reactive Prot, Quant 1.4 H, Total Protein 7.9, Albumin 3.9, Amylase 27, Lipase 70 L 10/22/19 17:54: Urine Color Yellow, Urine Appearance Slightly cloudy, Urine pH 6.0, Ur Specific Humphrey >=1.030, Urine Protein 15 H, Urine Glucose (UA) Negative, Urine Ketones 5, Urine Blood 5 H, Urine Nitrate Negative, Urine Bilirubin 1 H, Urine Ictotest Positive H, Prot Sulfosalicylic Acd 1+, Urine Urobilinogen Normal, Ur Leukocyte Esterase 75 H, Urine RBC 0-5, Urine WBC 10-25 H, Ur Epithelial Cells None seen, Urine Bacteria Trace, Urine Culture Comments Culture to follow 10/23/19 08:06: WBC 13.4 H, RBC 5.42, Hgb 16.4, Hct 47.5, MCV 87.6, MCH 30.3, MCHC 34.5, RDW 13.3, Plt Count 269, MPV 8.7, Immature Gran % (Auto) 0.40, Immature Gran # (Auto) 0.05 H, Neutrophils % 68.3, Lymphocytes % 21.3, Monocytes % 7.1, Eosinophils % 2.5, Basophils % 0.4, Nucleated RBC % 0.0, Neutrophils # 9.2 H, Lymphocytes # 2.86, Monocytes # 1.0, Eosinophils # 0.3, Absolute Basophils 0.1 10/23/19 08:06: Sodium 138, Plasma Sodium 139, Potassium 3.8, Chloride 102, Carbon Dioxide 27.0, Anion Gap 12.8, BUN 21, Creatinine 0.70, Est GFR (Non-Af Amer) 125, BUN/Creatinine Ratio 30.0 H, Random Glucose 148 H, Calcium 8.6, Calcium Adj for Albumin 8.8, Total Bilirubin 0.7, AST 23, ALT 47, Alkaline Phosphatase 51, Total Protein 7.3, Albumin 3.4 10/24/19 04:55: WBC 11.0 H, RBC 4.63 L, Hgb 14.2, Hct 41.2 L, MCV 89.0, MCH 30.7, MCHC 34.5, RDW 13.3, Plt Count 201, MPV 8.6, Immature Gran % (Auto) 0.60 H, Immature Gran # (Auto) 0.07 H, Neutrophils % 64.4, Lymphocytes % 24.9, Monocytes % 6.3, Eosinophils % 3.5 H, Basophils % 0.3, Nucleated RBC % 0.0, Neutrophils # 7.1 H, Lymphocytes # 2.74, Monocytes # 0.7, Eosinophils # 0.4, Absolute Basophils 0.0 10/24/19 04:55: Sodium 139, Plasma Sodium 139, Potassium 3.7, Chloride 105, Carbon Dioxide 28.1, Anion Gap 9.6, BUN 13, Creatinine 0.66, Est GFR (Non-Af Amer) 134 H, BUN/Creatinine Ratio 19.7, Random Glucose 128 H, Calcium 7.7 L, Calcium Adj for Albumin 8.3 L, Total Bilirubin 0.6, AST 26, ALT 46, Alkaline Phosphatase 46 L, Total Protein 6.3, Albumin 2.9 L 10/25/19 05:20: WBC 10.8 H, RBC 4.88, Hgb 14.7, Hct 42.5, MCV 87.1, MCH 30.1, MCHC 34.6, RDW 12.8, Plt Count 233, MPV 8.5, Immature Gran % (Auto) 0.70 H, Immature Gran # (Auto) 0.08 H, Neutrophils % 64.9, Lymphocytes % 23.3, Monocytes % 6.6, Eosinophils % 4.0 H, Basophils % 0.5, Nucleated RBC % 0.0, Neutrophils # 7.0 H, Lymphocytes # 2.50, Monocytes # 0.7, Eosinophils # 0.4, Absolute Basophils 0.1 10/25/19 05:20: Sodium 138, Plasma Sodium 138, Potassium 4.1, Chloride 104, Carbon Dioxide 27.9, Anion Gap 10.2, BUN 10, Creatinine 0.64, Est GFR (Non-Af Amer) 139 H, BUN/Creatinine Ratio 15.6, Random Glucose 123 H, Calcium 8.3, Calcium Adj for Albumin 8.7, Total Bilirubin 0.6, AST 35, ALT 58, Alkaline Phosphatase 50, Total Protein 6.9, Albumin 3.1 L Discharge Location: Home Disposition: Home self-care Condition: Stable Discharge Activity: Activity as tolerated Discharge Diet: Consistent carbs, Low salt Referrals: Rama Urbina MD [Primary Care Provider] - One Week (TCM) Consultation Done:: Dr. Bocanegra (General Surgery). Problem Oriented Discharge Instructions to Patient/Family: Form - Excuse from Work, School, or Physical Activity Print Language (Nepali or Puerto Rican Available): Nepali Prescriptions (Any new or edited meds): traMADol HCL [Tramadol HCl] 50 mg PO Q12H PRN #60 PRN Reason: pain Prescription Printed Complete Home Medications List: Complete Home Medication List: lisinopril 2.5 mg tablet 2.5 mg PO DAILY #30 tab 05/19/19 celecoxib 200 mg capsule 200 mg PO BID PRN #60 cap 09/15/19 clonazepam 1 mg tablet 1 mg PO HS PRN #45 tab 09/15/19 metformin 500 mg tablet 500 mg PO BID #60 tab 09/15/19 zolpidem 12.5 mg tablet,extended release,multiphase 12.5 mg PO HS #30 tab 09/15/19 venlafaxine 150 mg capsule,extended release 24 hr 150 mg PO DAILY #30 cap 09/24/19 traMADol HCL [Tramadol HCl] 50 mg PO Q12H PRN #60 10/25/19
[2019-10-25 10:51] VITALS: BP 113/71
== END 2019-10-25 11:20 | disposition home or self-care (01) | DRG 390 ==
LOC: ER 16:54 → MS 21:02
PROVIDERS: ADMIT Family Medicine; ATTEND Family Medicine
CPT/HCPCS: 36415; 71010; 71045; 74019; 74020; 74177; 80053; 81001; 82150; 83690; 84484; 85025; 86140; 87086; 90686; 93005; 96374; 96375; 99285; J2405; Q9963; Q9967